=== PATIENT | male | born 1955 | race Caucasian/White ===

== ENCOUNTER 2024-04-12 10:07 | Outpatient (CLI) | payer MEDICARE, OTHER ==
[2024-04-12] VITALS (7 sets, daily range): BP systolic 129–155; BP diastolic 59–77; PULSE 49–68; RESP 18; O2SAT 97
[~2024-04-12] VITALS: Ht 182.9 cm; Wt 112.0 kg
[2024-04-12] MEDS ORDERED: normal saline 500ml IV soln 500 ML IV ONE (11:05)
[2024-04-12] MEDS ORDERED: atropine 0.1mg/ml 10ml syringe IV PRN (11:05)
[2024-04-12] MEDS ORDERED: nitroGLYCERIN 0.4mg SUBLingual tab SL PRN (11:05)
[2024-04-12] MEDS ORDERED: metoprolol tartrate 1mg/ml inj IV PRN (11:05)
[2024-04-12] MEDS ORDERED: aminophylline 250mg/10ml inj. IV PRN (11:05)
[2024-04-12] MEDS: regadenoson 0.4mg/5ml syringe IV ONE (11:46)
== END 2024-04-12 23:59 | disposition home or self-care (01) ==
LOC: RAD 10:07
PROVIDERS: ATTEND Internal Medicine Cardiovascular Disease
DX: R94.31 Abnormal electrocardiogram [ECG] [EKG] (principal); R94.30 Abnormal result of cardiovascular function study, unspecified
CPT/HCPCS: 78452; 93017; A9500; J2785; J7040; J0280